=== PATIENT | female | born 1985 ===

== ENCOUNTER 2021-06-15 05:35 | Inpatient (IN) | payer BC ==
[2021-06-15] MEDS ORDERED: Butorphanol 1 MG/ML SDV IVPUSH PRN (06:20)
[2021-06-15] MEDS ORDERED: Lidocaine 1% 50 ML MDV INJECT PRN (06:20)
[2021-06-15] MEDS ORDERED: Ondansetron 4 MG/2 ML SDV IVPUSH PRN (06:20)
[2021-06-15] MEDS ORDERED: Sodium Chloride 0.9% 10 ML Syringe FLUSH PRN (06:20)
[2021-06-15] MEDS ORDERED: Sodium Chloride 0.9% 20 ML SDV IV PRN (06:20)
[2021-06-15] MEDS ORDERED: Methylergonovine 0.2 MG/1 ML Amp IM PRN (06:20)
[2021-06-15] MEDS ORDERED: Misoprostol 200 MCG Tab PO PRN (06:20)
[2021-06-15] MEDS ORDERED: Water For Irrigation,Sterile 1,000 ML Container IRR PRN (06:20)
[2021-06-15] MEDS ORDERED: Ampicillin 2 GM in Sodium Chloride 0.9% 100 ML IV ONE (06:20)
[2021-06-15] MEDS ORDERED: Carboprost Tromethamine 250 MCG/1 ML Amp IM PRN (06:20)
[2021-06-15] MEDS ORDERED: Sodium Chloride 0.9% 2.5 ML Syringe FLUSH PRN (06:20)
[2021-06-15] MEDS ORDERED: Tranexamic Acid 1,000 MG in Sodium Chloride 0.9% 100 ML IV PRN (06:20)
[2021-06-15] MEDS ORDERED: Terbutaline 1 MG/ML SDV SUBCUT PRN (06:20)
[2021-06-15] MEDS ORDERED: Oxytocin/0.9 % Sodium Chloride 30 UNIT/500 ML BAG IV SCH ×2 (06:30)
[2021-06-15] MEDS ORDERED: Lactated Ringers 1,000 ML IV SCH (06:30)
[2021-06-15] MEDS ORDERED: Ampicillin 2 GM AdvVial IV ONE (07:13)
[2021-06-15] MEDS ORDERED: ePHEDrine 50 MG/ML SDV IVPUSH PRN ×2 (08:29)
[2021-06-15] MEDS ORDERED: Ropivacaine 200 MG in Premix Bag 1 BAG EPIDUR SCH (08:30)
[2021-06-15] MEDS ORDERED: Ampicillin 1 GM in Sodium Chloride 0.9% 50 ML IV SCH (10:30)
[2021-06-15] MEDS ORDERED: Acetaminophen 500 MG Tab PO PRN (11:32)
[2021-06-15] MEDS ORDERED: Lanolin 100% Cream 7 GM Tube TOP PRN (11:32)
[2021-06-15] MEDS ORDERED: oxyCODONE 5 MG Tab PO PRN (11:32)
[2021-06-15] MEDS ORDERED: Witch Hazel Medicated Pads 40/Jar TOP PRN (11:32)
[2021-06-15] MEDS ORDERED: Benzocaine/Menthol 20%-0.5% Spray 78 GM Cannister TOP PRN (11:32)
[2021-06-15] MEDS ORDERED: Bisacodyl 10 MG Supp RECTAL PRN (11:32)
[2021-06-15] MEDS ORDERED: Docusate Sodium 100 MG Cap PO PRN (11:32)
[2021-06-15] MEDS: Ibuprofen 800 MG Tab PO PRN (13:52)
[2021-06-16] MEDS: Ibuprofen 800 MG Tab PO PRN (02:35)
== END 2021-06-17 12:47 | disposition home or self-care (01) | DRG 560 ==
LOC: MW.OBCHECK 05:35 → MW.OB 05:38 → UNDOADMOB 06:15 → MW.OB 06:15 → MW.OBCHECK 06:19 → MW.OB 06:21 → OBSVTOIN 11:32 → MW.OB 15:51
PROVIDERS: ADMIT Obstetrics & Gynecology; ATTEND Obstetrics & Gynecology
PROC: 10E0XZZ Delivery of Products of Conception, External Approach (ICD-10-PCS; principal; 2021-06-15)
PROC: 3E0234Z Introduction of Serum, Toxoid and Vaccine into Muscle, Percutaneous Approach (ICD-10-PCS; 2021-06-16)
DX: O99.824 Streptococcus B carrier state complicating childbirth (principal); Z37.0 Single live birth; Z3A.40 40 weeks gestation of pregnancy; O98.32 Other infections with a predominantly sexual mode of transmission complicating childbirth; A60.09 Herpesviral infection of other urogenital tract; Z20.822 Contact with and (suspected) exposure to COVID-19; O26.893 Other specified pregnancy related conditions, third trimester; Z67.41 Type O blood, Rh negative; O71.82 Other specified trauma to perineum and vulva
CPT/HCPCS: 36415; 59025; 59409; 85014; 85018; 85027; 85460; 86592; 86850; 86900; 86901; A9270-GY; J0290; J2590; J2790; J7120; U0002